=== PATIENT | female | born 1970 | race Caucasian/White ===

== ENCOUNTER 2021-08-11 00:50 | Emergency (ER) | payer BC ==
[~2021-08-11] VITALS: Ht 162.6 cm; Wt 70.5 kg
--- NOTE | 2021-08-11 01:07 | PHYS DOC ---
General Adult HPI: HPI: ".. Had cancer 3 times... 2 times with lymphoma and they removed my spleen.. Because of the Hodgkin's... Also got of brain cancer... 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 I got my booster shot of COVID on 07/20. but now I ve got a rash.. I worried it is an infection.. I am from [facility].. here visiting my mom..." Patient is a 50 year old female who presents with above hx and complaints of rash on Lt. upper arm. Just above the area where she received Covid vaccination. The area of the COVID vaccination is somewhat itchy. Pt. Had Moderna booster on Jul.20. Patient has somewhat extensive medical history of Hodgkin's lymphoma x2 underwent chemotherapy as well as surgery and radiation. 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 Patient also required a thyroidectomy due to the radiation. Patient also has had brain cancer. Patient has not completed flu vaccination this season. Patient only follows with physicians in [facility]. Review of Systems: Review of Systems: Constitutional: Denies fever or chills Eyes: Denies change in visual acuity HENT: Denies nasal congestion or sore throat Respiratory: Denies cough or shortness of breath Cardiovascular: Denies chest pain or edema GI: Denies abdominal pain, nausea, vomiting, bloody stools or diarrhea : Denies dysuria Musculoskeletal: Denies back pain or joint pain Integument: Complains of left upper arm rash. Neurologic: Denies headache, focal weakness or sensory changes Endocrine: Denies polyuria or polydipsia Lymphatic: Denies swollen glands Psychiatric: Denies depression or anxiety Family History: Family History: Noncontributory to presentation Current Medications: Current Meds: See nursing for home meds Allergies: Allergies: Allergic to plastic Physical Exam: PE: Constitutional: acute distress, non-toxic appearance. [] HENT: Normocephalic, atraumatic, bilateral external ears normal, oropharynx moist, no oral exudates, nose normal. [] Eyes: PERRLA, EOMI, conjunctiva normal, no discharge. [] Neck: Normal range of motion, no tenderness, supple, no stridor. Old surgery scars. Radiation hess Cardiovascular:Heart rate regular rhythm, no murmur [] Lungs & Thorax: Bilateral breath sounds equal at apex auscultation [] Abdomen: Bowel sounds normal, soft, no tenderness, no masses, no pulsatile masses. Old surgery scars Skin: Warm, dry, no erythema, poor turgor. Rash on left upper arm. Back: No tenderness, no CVA tenderness. [] Extremities: No tenderness, no cyanosis, no clubbing, ROM intact, no edema. [] Neurologic: Alert and oriented X 3, normal motor function, normal sensory function, no focal deficits noted. [] Psychologic: Affect anxious, judgement normal, mood normal. [] EKG: EKG: [] Radiology/Procedures: Radiology/Procedures: [] Heart Score: C/O Chest Pain: N/A Risk Factors: Risk Factors: DM, Current or recent (<one month) smoker, HTN, HLP, family history of CAD, obesity. Risk Scores: Score 0 - 3: 2.5% MACE over next 6 weeks - Discharge Home Score 4 - 6: 20.3% MACE over next 6 weeks - Admit for Clinical Observation Score 7 - 10: 72.7% MACE over next 6 weeks - Early Invasive Strategies Course & Med Decision Making: Course & Med Decision Making Pertinent Labs and Imaging studies reviewed. (See chart for details) Use moist compresses of salt water and Epson salts 4 times a day. Take Bactrim DS twice a day. Follow-up primary care. Return if any concerns. Impression: 1. Delayed drug reaction from Moderna Booster injection on July 20 vs 2. Cellulitis 3. History of lymphoma-treated with surgery, radiation, chemotherapy 4. History of splenectomy [] Dragon Disclaimer: Dragjesus Disclaimer: This electronic medical record was generated, in whole or in part, using a voice recognition dictation system. Departure Departure: Referrals: NON,STAFF (PCP) Scripts Sulfamethoxazole/Trimethoprim (BACTRIM DS TABLET) 1 Each Tablet 1 TAB PO BID for cellulitis for 10 Days, #20 TAB 0 Refills Prov: REKHA CAMPO MD 08/11/21 Elenita Disclaimer This chart was dictated in whole or in part using Voice Recognition software in a busy, high-work load, and often noisy Emergency Department environment. It may contain unintended and wholly unrecognized errors or omissions. REKHA CAMPO MD Aug 11, 2021 01:07
[2021-08-11 01:20] VITALS: BP 152/68
[2021-08-11] MEDS ORDERED: SULF1TAB24 PO (01:55)
[2021-08-11] MEDS ORDERED: diphenhydrAMINE HCL 25 MG CAPSULE PO ONE (02:00)
[2021-08-11] MEDS ORDERED: SMZ/TMP 800/160MG TABLET. PO ONE (02:00)
== END 2021-08-11 02:05 | disposition home or self-care (01) ==
LOC: ER 00:50
DX: L03.114 Cellulitis of left upper limb (principal); T50.B95A Adverse effect of other viral vaccines, initial encounter; Z90.81 Acquired absence of spleen; Z85.72 Personal history of non-Hodgkin lymphomas; Z88.8 Allergy status to other drugs, medicaments and biological substances; Y92.89 Other specified places as the place of occurrence of the external cause
CPT/HCPCS: 99283; Q0163